=== PATIENT | male | born 1965 | race African-American/Black ===

== ENCOUNTER 2020-05-24 15:48 | Emergency (ER) | payer BC, SELFPAY ==
--- NOTE | ~2020-05-24 | XR_ITS ---
EXAMINATION: XR chest 2V 05/24/2020 16:21 INDICATION: Left-sided chest pain PROCEDURE: 2 view chest COMPARISON: 09/18/2018 FINDINGS: The lungs are clear. The cardiomediastinal silhouette is within normal limits. There are no pleural effusions. There is no pneumothorax suspected. IMPRESSION: 1: NO ACUTE CARDIOPULMONARY DISEASE. Reviewed, dictated and finalized at location B.
--- NOTE | 2020-05-24 15:50 | ECG_ITS ---
Measurements Intervals [place] Rate: 88 P: 25 OR: 147 QRS: -7 QRSD: 88 T: 86 QT: 332 QTc: 403 Interpretive Statements SINUS RHYTHM NONSPECIFIC T-WAVE ABNORMALITY- DIFFUSE LEADS BASELINE ARTIFACT- V3, V6 BORDERLINE ECG Electronically Signed On 05-24-2020 16:39:30 CDT by Sonido Yuan D.O.
[2020-05-24 15:51] VITALS: BP 150/91; PULSE 88; RESP 18; TEMP 36.3; O2SAT 100
[2020-05-24 16:06] LABS: Basophils Percent Auto 0.2 % (0.2-1.2); Eosinophils Absolute Auto 0.2 K/mm3 (0-0.3); Hematocrit 42.9 % (42.0-52.0); Hemoglobin 14.4 g/dL (14.0-18.0); Immature Granulocyte Absolute 0.02 K/mm3 (0.00-0.031); Immature Granulocyte Percent A 0.2 % (0-0.5); Lymphocytes Absolute Auto 2.16 K/mm3 (0.9-3.2); Lymphocytes Percent Auto 24.9 % (18.3-44.2); Mean Corpuscular HGB Conc 33.6 g/dl (32-36); Mean Corpuscular Hemoglobin 32.1 pg (26-34); Mean Corpuscular Volume 95.8 fl (80-100); Mean Platelet Volume 10.2 fl (7.4-10.4); Monocytes Absolute Auto 0.5 K/mm3 (0.1-0.6); Monocytes Percent Auto 5.5 % (2.6-8.5); Neutrophils Absolute Auto 5.8 K/mm3 (1.3-6.7); Neutrophils Percent Auto 67.2 % (45.5-73.1); Platelet Count Result 224 k/mm3 (150-375); Red Blood Count 4.48 M/mm3 (4.6-6.20); White Blood Count 8.7 K/mm3 (4.5-10.0)
[2020-05-24 16:17] LABS: INR 0.8; Partial Thromboplastin Time 27.1 SECONDS (22.3-36.8); Prothrombin Time 12.1 Seconds (11.1-14.7)
[2020-05-24 16:18] LABS: Anion Gap 7 mmol/L (8-16); Blood Urea Nitrogen 12 mg/dL (9-20); Carbon Dioxide 27 mmol/L (22-30); Chloride 102 mmol/L (98-107); Estimated CRCL calculation 89 ml/min; Estimated Glomerular Filt Rate > 60; Glucose 232 mg/dL (75-110); Potassium 4.1 mmol/L (3.4-5.0); Sodium 136 mmol/L (137-145)
[2020-05-24 16:30] LABS: Troponin I < 0.012 ng/mL (0.000-0.034)
--- NOTE | 2020-05-24 19:36 | PC.NURSE ---
Pt presents to ED with complaints of left jaw pain, related to dental pain, onset approx 2 weeks ago. Pt states on Wednesday, he began experiencing a sharp, shooting pain to left arm and chest. Pt states pain is intermittent. Pain currently rated 8/10 at this time. Pt states pain was improving with ibuprofen and he is no longer gaining relief. Pt states pain in his mouth increases with eating. Pt states he last had 400mg ibuprofen at approx 1300. Pt states he has not recently been seen by a dentist. Pt is alert and oriented x4, breathing noted to be even and unlabored.
[2020-05-24 19:40] VITALS: BP 157/96; PULSE 89; RESP 19; O2SAT 100
--- NOTE | 2020-05-24 19:41 | PC.NURSE ---
Mild swelling noted to left face. Pt noted with several areas of dental carries and decay. Pain noted with palpation of left side of face.
--- NOTE | 2020-05-24 19:51 | ED.DENTAL ---
HPI - Dental/Oral General Chief complaint: Chest Pain Stated complaint: left sided jaw, neck and shoulder pain Time Seen by Provider: 05/24/20 19:33 Source: patient and RN notes reviewed Mode of arrival: ambulatory Limitations: no limitations History of Present Illness HPI Narrative: Patient is 54 years old -[place] male cervical strain referred to our emergency room from urgent care because off left lower dental pain, and jaw pain started 2 weeks ago, is getting worse. Patient reports pain slightly tender to the right side of his head and possibly left side of his neck. Right shoulder patient denies any chest pain or shortness of breath. History of diabetes, hypertension, does not smoke, drinks occasionally, dehydration his father had coronary artery disease. Related Data Allergies Allergy/AdvReac Type Severity Reaction Status Date / Time No Known Allergies Allergy Mild Verified 06/20/09 10:44 Review of Systems Review of Systems: Narrative: CONSTITUTIONAL: Denies fever, chills, or sweats. EYES: Denies visual changes, redness, or discharge. ENT: Denies rhinorrhea, congestion, sore throat, or otalgia. CARDIOVASCULAR: Denies chest pain, palpitations, or edema. RESPIRATORY: Denies cough or dyspnea. GASTROINTESTINAL: Denies abdominal pain, nausea, vomiting, or diarrhea. GENITOURINARY: Denies dysuria or hematuria. SKIN: Denies rash or itching. MUSCULOSKELETAL: Denies back pain, joint pain, or myalgia. NEUROLOGIC: Denies headache, numbness, or weakness. PSYCHIATRIC: Denies anxiety or depression. Exam Narrative: Exam Narrative: General appearance: Well-developed, well-nourished Skin: Normal color Head: Normocephalic, nontraumatic Eyes: Clear conjunctiva ENT: Oropharynx normal, ears normal, nose normal, left lower dental decay, diffuse tenderness,, left submandibular lymphadenopathy, tender to palpation. No abscess formation. Neck: Supple, nontender Chest and respiratory: Airway patent, no respiratory distress, no accessory muscle use Heart: Regular rate/rhythm Vascular: Normal peripheral pulses, normal capillary refill. Neurologic: Alert and oriented ?3, Course Course Emergency Course: Stable Vital Signs Vital signs: Vital Signs Temperature 36.3 C L 05/24/20 15:51 Pulse Rate 88 05/24/20 15:51 Respiratory Rate 18 05/24/20 15:51 Blood Pressure 150/91 H 05/24/20 15:51 Pulse Oximetry 100 05/24/20 15:51 Temperature 36.3 C L 05/24/20 15:51 Pulse Rate 89 05/24/20 19:40 Respiratory Rate 19 05/24/20 19:40 Blood Pressure 157/96 H 05/24/20 19:40 Pulse Oximetry 100 05/24/20 19:40 MDM - Dental/Oral MDM Narrative Medical decision making narrative: Patient referred to our emergency room for possible left lower dental pain and jaw pain secondary to coronary artery disease. Physical exam showed that the patient have severe tenderness and extensive dental decay left lower gum. Make the possibility of coronary disease less likely. Differential Diagnosis Differential diagnosis: Likely other (Dental caries) Lab Data Result diagrams: 05/24/20 15:58 05/24/20 15:58 Labs: Lab Results 05/24/20 05/24/20 05/24/20 Range/Units 15:58 15:58 15:58 WBC 8.7 (4.5-10.0) K/mm3 RBC 4.48 L (4.6-6.20) M/mm3 Hgb 14.4 (14.0-18.0) g/dL Hct 42.9 (42.0-52.0) % MCV 95.8 (80-100) fl MCH 32.1 (26-34) pg MCHC 33.6 (32-36) g/dl RDW 13.0 (11.5-14.5) % Plt Count 224 (150-375) k/mm3 MPV 10.2 (7.4-10.4) fl Immature Gran % (Auto) 0.2 (0-0.5) % Neut % (Auto) 67.2 (45.5-73.1) % Lymph % (Auto) 24.9 (18.3-44.2) % Ross % (Auto) 5.5 (2.6-8.5) %
[2020-05-24 19:55] VITALS: O2SAT 98
[2020-05-24] MEDS: IBUPROFEN 400 MG TABLET 800 MG PO (19:58)
[2020-05-24] MEDS: PENICILLIN V POTASSIUM 250 MG TABLET 500 MG PO (19:58)
== END 2020-05-24 20:39 | disposition home or self-care (01) ==
PROVIDERS: Emergency Medicine; Emergency Provider Emergency Medicine; PCP Internal Medicine
DX: K02.9 Dental caries, unspecified (principal); R94.31 Abnormal electrocardiogram [ECG] [EKG]
CPT/HCPCS: 36415; 71046; 80048; 84484; 85025; 85610; 85730; 93005; 99284; A9270

== ENCOUNTER 2022-04-16 09:34 | Emergency (ER) | payer BC, SELFPAY ==
[2022-04-16 09:49] VITALS: BP 124/83; PULSE 100; RESP 14; TEMP 36.3; O2SAT 98
--- NOTE | 2022-04-16 10:19 | ED.URI ---
HPI - URI/Sore Throat General Chief Complaint: Upper Respiratory Infection Stated Complaint: Sore Throat/Sinus Time Seen by Provider: 04/16/22 10:19 Source: patient, RN notes reviewed and old records reviewed Mode of arrival: ambulatory Limitations: no limitations History of Present Illness HPI Narrative: 56-year-old male presents to the [facility] with complaints of a sore throat and sinus congestion since wednesday, 2 days Has not taken anything for symptoms. Denies any chest pain or shortness of breath. Denies abdominal pain. Related Data Home Medications Medication Instructions Recorded Confirmed lisinopril 20 mg tablet mg 04/16/22 metformin 850 mg tablet mg 04/16/22 Allergies Allergy/AdvReac Type Severity Reaction Status Date / Time No Known Allergies Allergy Mild Verified 04/16/22 09:58 Review of Systems Review of Systems: All systems reviewed & are unremarkable except as noted in HPI and below Constitutional: Constitutional: Reports no additional constitutional complaints Eyes: Eyes: Reports no additional eye complaints ENT: Reports as per HPI Cardiovascular: Cardiovascular: Reports no additional cardiovascular complaints, Denies chest pain and Denies dyspnea Respiratory: Respiratory: Reports no additional respiratory complaints, Denies chest congestion, Denies cough and Denies dyspnea Gastrointestinal: Gastrointestinal: Reports no additional gastrointestinal complaints, Denies abdominal pain, Denies nausea and Denies vomiting Musculoskeletal: Musculoskeletal: Reports no additional musculoskeletal complaints Integumentary/Breasts: Skin/Breast: Reports system reviewed and no additional complaints, except as docu Neurologic: Reports system reviewed and no additional complaints, except as documented Psychiatric: Psychiatric: Reports no additional psychiatric complaints Allergic/Immunologic: Allergic/Immunologic: Reports no additional allergic/immunologic complaints PMFSH Comments At the time of my signature, I reviewed and agree with the nursing past medical, surgical, social, and family history. There is no relevant family history pertinent to the patient complaint. Exam Const: General: cooperative, comfortable, no acute distress, well developed, alert, ill appearing acutely (mild) and well nourished Nutritional Appearance: well nourished Orientation/consciousness: patient oriented x3 Limitations: no limitations HENMT: Head: normal to inspection Ears: hearing grossly normal bilaterally and external ears normal Face/Nose/Sinus: Normal external nose present, Normal nares present, Normal nasal mucous membranes and turbinates present and normal facial exam Face and sinus: normal facial exam Mouth: Yes Normal oral and palatal mucosa present, Yes lip normal and Yes moist mucous membranes Throat: posterior oropharynx normal and uvula midline Eyes: General: appearance normal, both eyes and all related structures Alignment and Position: alignment normal Periorbital: periorbital findings normal Conjunctivae: conjunctivae normal Pupils: Equal, round and reactive pupils present EOM: EOMs intact bilaterally Neck: Neck: normal visual inspection, full ROM, no lymphadenopathy and no meningeal signs Chest: Chest palpation & inspection: normal inspection of the chest Resp: Effort & Inspection: normal respiratory effort and able to speak in complete sentences Auscultation: clear to auscultation bilaterally, no crackles, no rales, no rhonchi and no wheezes Cardio: Rate: regular rate Rhythm: regular rhythm Back/Spine/Pelvis: Cervical Spine: cervical ROM normal Thoracic/Lumbar Spine: No thoracic spinal tenderness Skin: General skin exam: normal color and no rashes or lesions noted Lesions: no lesions Rashes: no rashes Wounds: no wounds Neuro: General: patient oriented x3, gait normal, tone normal, moves all extremities and no meningeal signs Cranial nerves: Yes Equal, round and reactive pupils present
[2022-04-16 10:32] LABS: Glucose Point of Care 327 mg/dl (65-105)
== END 2022-04-16 10:49 | disposition home or self-care (01) ==
PROVIDERS: Emergency Provider Nurse Practitioner
DX: U07.1 COVID-19 (principal)
CPT/HCPCS: 82948; 87081; 87426; 87804; 87880; 99213; C9803; G0463